=== PATIENT | female | born 1995 | race African-American/Black ===

== ENCOUNTER 2020-11-25 17:38 | Emergency (ER) | payer MEDICAID, SELFPAY ==
[~2020-11-25] VITALS: Ht 160 cm; Wt 64.4 kg
[2020-11-25 17:53] VITALS: BP 120/75
--- NOTE | 2020-11-25 18:11 | NUR ---
GUS GOMES AT BEDSIDE EXAMINING PT
[2020-11-25] MEDS ORDERED: CETI10TA81 PO (18:17)
[2020-11-25] MEDS ORDERED: DIPH25CA94 PO (18:17)
[2020-11-25] MEDS ORDERED: FLUT0.0560 NS (18:17)
[2020-11-25] MEDS ORDERED: PROM118S5 PO (18:32)
--- NOTE | 2020-11-25 18:38 | NUR ---
25 F BIB self c/c fever, bodyaches, weakness x2days. Denies N/V, SOB, and sore throat. Reports taking Tylenol and it helps reduce the fever. Denies cervical lymphadenopathy tenderness. PMH: Bronchitis Allx: NKA Rx: Promethazine
[2020-11-25 18:44] VITALS: BP 120/75
--- NOTE | 2020-11-25 18:44 | NUR ---
Patient discharged with v/s stable. Written and verbal after care instructions given and explained. Patient alert, oriented and verbalized understanding of instructions. Ambulatory with steady gait. All questions addressed prior to discharge. ID band removed. Patient advised to follow up with PMD. Rx of Zyrtex, Promethazine, Fluticasone Propionate given. Patient educated on indication of medication including possible reaction and side effects. Opportunity to ask questions provided and answered.
== END 2020-11-25 18:44 | disposition home or self-care (01) ==
LOC: MED 17:38
DX: J30.9 Allergic rhinitis, unspecified (principal); Z20.822 Contact with and (suspected) exposure to COVID-19; Z79.899 Other long term (current) drug therapy
CPT/HCPCS: 99283; U0003

== ENCOUNTER 2022-02-19 15:58 | Emergency (ER) | payer MEDICAID ==
[~2022-02-19] VITALS: Ht 160 cm; Wt 62.4 kg
[~2022-02-19 15:58] MED LIST: CETI10TA81 PO; DIPH25CA94 PO; FLUT0.0560 NS; PROM118S5 PO
[2022-02-19 17:01] VITALS: BP 101/78
--- NOTE | 2022-02-19 19:04 | NUR ---
PT AMBULATED TO BED 3
--- NOTE | 2022-02-19 19:15 | NUR ---
Female Needleworker accompanied female patient for Pelvic Exam.
[2022-02-19] MEDS ORDERED: VIB100 PO ×2 (19:24→21:44)
[2022-02-19] MEDS ORDERED: DOXYCYCLINE 100 MG CAP ONE (19:39)
[2022-02-19] MEDS ORDERED: cefTRIAXone 500 MG VIAL ONE (19:39)
[2022-02-19] MEDS ORDERED: LIDOCAINE MPF 1% 5 ML ONE (19:42)
[2022-02-19] MEDS: DOXYCYCLINE 100 MG CAP PO STA (19:52)
[2022-02-19] MEDS: cefTRIAXone 500 MG VIAL IM ONE (19:52)
--- NOTE | 2022-02-19 19:55 | NUR ---
26 y/o femaleBIBS FROM HOME, c/o white vaginal discharge with smell and is requesting sti screeing, pt states she had previous tx for uti at [facility] 1wk ago and states she may have irritation around vaginal area. denies burning or blood with urination. no fever, cough, cp, or sob. pmh: bronchitis nka med: antibiotics
[2022-02-19 21:45] VITALS: BP 115/82
--- NOTE | 2022-02-19 21:46 | NUR ---
Patient discharged with v/s stable. Written and verbal after care instructions given and explained. Patient alert, oriented and verbalized understanding of instructions. Ambulatory with steady gait. All questions addressed prior to discharge. ID band removed. Patient advised to follow up with PMD. Rx of doxycycline hyclate given. Patient educated on indication of medication including possible reaction and side effects. Opportunity to ask questions provided and answered. vss, a/ox4, unlabored breathing, ambulatory , and calm demeanor.
== END 2022-02-19 21:46 | disposition home or self-care (01) ==
LOC: MED 15:58
DX: N89.8 Other specified noninflammatory disorders of vagina (principal); Z11.3 Encounter for screening for infections with a predominantly sexual mode of transmission; Z79.899 Other long term (current) drug therapy
CPT/HCPCS: 81002; 81025; 86592; 86703; 87210; 87491; 96372; 99284; J0696; J2001; 99283

== ENCOUNTER 2022-07-26 16:49 | Emergency (ER) | payer MEDICAID ==
[~2022-07-26] VITALS: Ht 160 cm; Wt 65.8 kg
[~2022-07-26 16:49] MED LIST changes: +VIB100 PO
[2022-07-26 17:08] VITALS: BP 113/63
--- NOTE | 2022-07-26 17:52 | NUR ---
26/F WALKED IN C/O FEVER, COUGH, BODY ACHE, SORE THROAT, FATIGUE, AND CONGESTION ONSET 3 DAYS. PT REPORTS TESTING POSITIVE FOR AT-HOME COVID TEST. AAO4, AMBULATORY, VITALS STABLE. PT ALSO REPORTS NAUSEA. PMH: DENIES
[2022-07-26] MEDS ORDERED: ONDANSETRON 4 MG ODT PO ONE (18:00)
[2022-07-26] MEDS ORDERED: IBUPROFEN 600 MG TAB PO ONE (18:35)
[2022-07-26] MEDS ORDERED: DEXAMETHASONE 10 MG/ML VIAL IM ONE (19:55)
--- NOTE | 2022-07-26 20:05 | NUR ---
PT TAKEN TO BED 6
--- NOTE | 2022-07-26 20:30 | NUR ---
GUS MAZARIEGOS AT BEDSIDE
[2022-07-26] MEDS ORDERED: PENI500T20 PO (20:40)
[2022-07-26] MEDS ORDERED: IBUP-2213 PO (20:40)
[2022-07-26] MEDS ORDERED: PROM118S5 PO (20:40)
[2022-07-26] MEDS ORDERED: LIDO100S PO (20:40)
--- NOTE | 2022-07-26 20:49 | NUR ---
PRIOR TEMP 100.4. COOLING MEASURES INITIATED. CURRENT TEMP 99.8
[2022-07-26 20:52] VITALS: BP 119/61
--- NOTE | 2022-07-26 20:52 | NUR ---
Written and verbal after care instructions given and explained. Patient alert, oriented and verbalized understanding of instructions. Ambulatory with steady gait. All questions addressed prior to discharge. ID band removed. Patient advised to follow up with PMD. Rx of IBUPROFEN, LIDOCAINE, PENICILLIN AND PROMETHAZINE given. Patient educated on indication of medication including possible reaction and side effects. Opportunity to ask questions provided and answered.
== END 2022-07-26 20:52 | disposition home or self-care (01) ==
LOC: MED 16:49
DX: U07.1 COVID-19 (principal); J02.0 Streptococcal pharyngitis
CPT/HCPCS: 87081; 96372; 99283; J1100; Q0162

== ENCOUNTER 2022-08-15 17:13 | Emergency (ER) | payer MEDICAID ==
[~2022-08-15] VITALS: Ht 160 cm; Wt 63.5 kg
[~2022-08-15 17:13] MED LIST changes: +IBUP-2213 PO; +LIDO100S PO; +PENI500T20 PO
[2022-08-15 17:35] VITALS: BP 121/67
--- NOTE | 2022-08-15 17:38 | NUR ---
PT AMBULATED TO LOBBY
--- NOTE | 2022-08-15 18:29 | NUR ---
CALLED [employer] FOR POLICE REPORT. PER [employer], WILL SEND PD.
[2022-08-15] MEDS ORDERED: IBUPROFEN 800 MG TAB PO ONE (18:35)
[2022-08-15] MEDS ORDERED: AMOXIL/CLAVULANATE 875/125 MG 1 TAB PO ONE (18:35)
--- NOTE | 2022-08-15 19:10 | NUR ---
TAMAR LOGAN SPEAKING WITH PT
[2022-08-15] MEDS ORDERED: AMOX1TAB8 PO (19:26)
[2022-08-15] MEDS ORDERED: BACI-416 TP (19:26)
[2022-08-15 19:48] VITALS: BP 118/62
--- NOTE | 2022-08-15 19:48 | NUR ---
Patient discharged with v/s stable. Written and verbal after care instructions given and explained. Patient alert, oriented and verbalized understanding of instructions. Ambulatory with steady gait. All questions addressed prior to discharge. ID band removed. Patient advised to follow up with PMD. Rx of AMOXICILLIN, BACITRACIN ZINC given. Patient educated on indication of medication including possible reaction and side effects. Opportunity to ask questions provided and answered.
== END 2022-08-15 19:48 | disposition home or self-care (01) ==
LOC: MED 17:13
DX: S31.109A Unspecified open wound of abdominal wall, unspecified quadrant without penetration into peritoneal cavity, initial encounter (principal); S61.309A Unspecified open wound of unspecified finger with damage to nail, initial encounter; S60.221A Contusion of right hand, initial encounter; S60.222A Contusion of left hand, initial encounter; Z79.899 Other long term (current) drug therapy; Y04.1XXA Assault by human bite, initial encounter; Y93.89 Activity, other specified; Y92.89 Other specified places as the place of occurrence of the external cause; Y99.8 Other external cause status
CPT/HCPCS: 73130; 81025; 90471; 90715; 99284

== ENCOUNTER 2023-07-28 16:56 | Emergency (ER) | payer MEDICAID ==
[~2023-07-28] VITALS: Ht 167.6 cm; Wt 72.6 kg
[~2023-07-28 16:56] MED LIST changes: +AMOX1TAB8 PO; +BACI-418 TP
[2023-07-28 17:31] VITALS: BP 105/74; PULSE 82; RESP 18; TEMP 97; O2SAT 98
[2023-07-28 18:09] LABS: BASOPHILS # (AUTO) 0.1 K/uL (0.00-0.22); EOSINOPHILS # (AUTO) 0.1 K/uL (0-0.4); EOSINOPHILS % (AUTO) 0.9 % (0.0-4.0); HEMATOCRIT 40.7 % (36-48); HEMOGLOBIN 13.3 g/dL (12.0-16.0); LYMPHOCYTES # (AUTO) 1.7 K/uL (2.5-16.5); LYMPHOCYTES % (AUTO) 28.4 % (20.5-51.1); MEAN CORPUSCULAR HEMOGLOBIN 30 pg (27-31); MEAN CORPUSCULAR HGB CONC 33 g/dL (33-37); MEAN CORPUSCULAR VOLUME 92.8 fL (80-94); MONOCYTES # (AUTO) 0.6 K/uL (0.8-1.0); MONOCYTES % (AUTO) 10.3 % (1.7-9.3); NEUTROPHILS # (AUTO) 3.5 K/uL (1.8-7.7); NEUTROPHILS % (AUTO) 59.4 % (42.2-75.2); PLATELET COUNT (AUTO) 313 K/uL (140-450); RED BLOOD CELL COUNT(AUTO) 4.39 MIL/uL (4.20-5.40); RED CELL DISTRIBUTION WIDTH 13.6 % (11.6-13.7); WHITE BLOOD COUNT (AUTO) 5.9 K/uL (4.8-10.8)
[2023-07-28 18:39] LABS: APPEARANCE,URINE CLEAR (CLEAR); BILIRUBIN,URINE NEGATIVE (NEGATIVE); BLOOD, URINE 3+ (NEGATIVE); COLOR,URINE YELLOW (YELLOW); LEUKOCYTE ESTERASE ,URINE NEGATIVE (NEGATIVE); NITRITE, URINE NEGATIVE (NEGATIVE); PH,URINE 7.5 (5.0-9.0); PROTEIN,URINE NEGATIVE (NEGATIVE); UGLUCOSE NEGATIVE (NEGATIVE); UROBILINOGEN,URINE 0.2 EU/dL (0.2 - 1)
== END 2023-07-28 21:24 | disposition home or self-care (01) ==
LOC: MED 16:56
DX: O46.91 Antepartum hemorrhage, unspecified, first trimester (principal); Z3A.01 Less than 8 weeks gestation of pregnancy
CPT/HCPCS: 36415; 76801; 81003; 81025; 84702; 85025; 86900; 86901; 99284